=== PATIENT | male | born 2000 | race Hispanic/Latino ===

== ENCOUNTER 2020-12-03 14:45 | Emergency (ER) | payer OTHER ==
[2020-12-03] MEDS ORDERED: IBUPROFEN 600 MG TABLET ONE (16:06)
[2020-12-03] MEDS ORDERED: ACETAMINOPHEN EXTRA STRENGTH 500 MG TABLET ONE (16:07)
== END 2020-12-03 16:55 | disposition home or self-care (01) ==
LOC: EDH 14:45
DX: S93.412A Sprain of calcaneofibular ligament of left ankle, initial encounter (principal); Z72.0 Tobacco use; W18.39XA Other fall on same level, initial encounter; Y93.89 Activity, other specified; Y92.89 Other specified places as the place of occurrence of the external cause; Y99.8 Other external cause status
CPT/HCPCS: 73610

== ENCOUNTER 2023-03-08 23:24 | Emergency (ER) | payer OTHER ==
[~2023-03-08] VITALS: Ht 167.6 cm; Wt 79.4 kg
[2023-03-09] MEDS ORDERED: DiphenhydrAMINE HCL 50 MG/ML VIAL IV ONE
[2023-03-09] MEDS ORDERED: EPINEPHRINE PF 1MG (1:1,000) 1 MG/ML AMP IM ONE
[2023-03-09] MEDS ORDERED: SOLU-MEDROL 40MG VIAL IVP ONE
[2023-03-09] MEDS ORDERED: PRED20TA3 PO (00:59)
[2023-03-09] MEDS ORDERED: FAMO-136 PO (00:59)
[2023-03-09] MEDS ORDERED: DIPH50 PO (00:59)
[2023-03-09 01:10] VITALS: BP 124/64
== END 2023-03-09 01:15 | disposition home or self-care (01) ==
LOC: EDH 23:24
DX: T78.49XA Other allergy, initial encounter (principal); R20.8 Other disturbances of skin sensation; Z90.89 Acquired absence of other organs; X58.XXXA Exposure to other specified factors, initial encounter
CPT/HCPCS: 99284; 96374; 96375; 96372; J1200; J0171; J2920